=== PATIENT | female | born 1985 | race American Indian/Alaskan Native ===

== ENCOUNTER 2023-04-29 22:01 | Emergency (ER) | payer OTHER, SELFPAY ==
[2023-04-29 22:07] VITALS: BP 142/73; PULSE 80; RESP 16; TEMP 36.3; O2SAT 99; BMI 31.1
--- NOTE | 2023-04-29 22:13 | ED.WOUNDLAC ---
HPI - Wound/Laceration General Chief Complaint: Wound/Laceration Stated Complaint: Cut right hand on mandolin Time Seen by Provider: 04/29/23 22:02 Source: patient Mode of arrival: Ambulatory History of Present Illness HPI narrative: 37-year-old female presents for hand injury that occurred just prior to arrival. Patient was slicing milo when she accidentally got the base of her hand. It began to bleed copiously and she was concerned that she may need stitches. She placed a bandage on her hand and presented for evaluation. She does not remember when her last tetanus shot was administered. Related Data Home Medications Medication Instructions Recorded Confirmed Fexofenadine Hydrochloride 0 PO Q DAY ##0 01/04/07 (Demetra) sertraline PO 02/26/23 02/26/23 Previous Rx's Medication Instructions Recorded mupirocin 2 % topical ointment 1 applic topical TID #15 grams 02/26/23 Allergies Allergy/AdvReac Type Severity Reaction Status Date / Time Sulfa (Sulfonamide Allergy Unknown Unverified 02/26/23 11:27 Antibiotics) [SULFA (SULFONAMIDE ANTIBIOTICS)] Review of Systems Review of Systems Narrative: Negative except as noted above Patient History Social History Smoking Status: Former smoker Smoking Status: Former smoker Substance Use Type: does not use Exam Initial Vital Signs Initial Vital Signs: Vital Signs Temperature 97.3 F L 04/29/23 22:07 Pulse Rate 80 04/29/23 22:07 Respiratory Rate 16 04/29/23 22:07 Blood Pressure 142/73 H 04/29/23 22:07 Pulse Oximetry 99 04/29/23 22:07 Oxygen Delivery Method Room Air 04/29/23 22:07 Const: Awake, alert, no acute distress, nontoxic appearing MSK: full range of motion, pulses equal Skin: Warm, Dry, 1 cm elliptical area of skin that has been avulsed from the medial palm Neuro: AO x3, CN II-XII grossly intact, moves all extremities Psych: affect normal, mood normal, not suicidal, not homicidal Course Orders Ordered: Discontinued Medications Diphtheria/Tetanus/Acell Pertussis (Tet,Diph,Pertuss(Acell),Vac/Pf 0.5 Ml Syringe) 0.5 ml IM .ONCE ONE Stop: 04/29/23 22:13 Lidocaine/Prilocaine (Lidocaine/Prilocaine 5 Gm) 5 gm TOP NOW ONE Stop: 04/29/23 22:13 Vital Signs Vital signs: Vital Signs - 8 hr 04/29/23 22:07 Temperature 97.3 F L Pulse Rate 80 Respiratory Rate 16 Blood Pressure 142/73 H Pulse Oximetry 99 Oxygen Delivery Method Room Air MDM - Wound/Laceration Differential Diagnosis Differential diagnosis: Likely laceration, abrasion and avulsion of skin MDM Narrative Medical decision making narrative: Well-appearing patient with completely avulsed flap of skin on the medial right palm. Due to the size, location, area of the avulsion not amenable to sutures as there would be too much tension for sutures to be beneficial. The wound was copiously irrigated and numbing cream applied. Tetanus shot updated. Wound care instructions discussed at bedside. Discharge Plan Departure Clinical Impression: Avulsion of skin Instructions: DI for Minor Laceration Activity Restrictions/Additional Instructions: Keep wound clean and dry. Change bandage daily, you may leave the bandage off at night if desired. Tylenol and Motrin may be taken for pain. If you notice redness, swelling, drainage these could be signs of infection and you should have your wound evaluated. Prescriptions: No Action sertraline PO mupirocin 2 % ointment 1 applic topical TID Qty: 15 0RF Fexofenadine Hydrochloride (Demetra) 0 PO Q DAY Qty: 0 Referrals: Miscellaneous,Doctor, [Primary Care Provider] - Stand Alone Forms: Patient Portal/API
[2023-04-29] MEDS: TET,DIPH,PERTUSS(ACELL),VAC/PF 0.5 ML SYRINGE IM (22:17)
[2023-04-29] MEDS: LIDOCAINE/PRILOCAINE 5 GM TOP (22:18)
== END 2023-04-29 22:39 | disposition home or self-care (01) ==
PROVIDERS: Emergency Provider Emergency Medicine
DX: S61.401A Unspecified open wound of right hand, initial encounter (principal); W45.8XXA Other foreign body or object entering through skin, initial encounter; Y93.G1 Activity, food preparation and clean up; Z23 Encounter for immunization
CPT/HCPCS: 90471; 99283; 90715